=== PATIENT | female | born 1990 | race African-American/Black ===

== ENCOUNTER 2017-04-05 15:07 | Emergency (ER) | payer OTHER ==
[~2017-04-05] VITALS: Ht 172.7 cm; Wt 90.7 kg
[2017-04-05 15:09] VITALS: BP 119/51
[2017-04-05] MEDS ORDERED: MOBIC7.5 MG PO (16:38)
== END 2017-04-05 16:43 | disposition home or self-care (01) ==
LOC: ER 15:07
DX: S51.012A Laceration without foreign body of left elbow, initial encounter (principal); S16.1XXA Strain of muscle, fascia and tendon at neck level, initial encounter; S09.90XA Unspecified injury of head, initial encounter; Y04.2XXA Assault by strike against or bumped into by another person, initial encounter; Y93.01 Activity, walking, marching and hiking; Y92.512 Supermarket, store or market as the place of occurrence of the external cause; Y99.8 Other external cause status

== ENCOUNTER 2017-04-14 15:33 | Emergency (ER) | payer OTHER ==
[~2017-04-14] VITALS: Ht 157.5 cm; Wt 74.8 kg
[~2017-04-14 15:33] MED LIST: MOBIC7.5 MG PO
[2017-04-14] MEDS ORDERED: FLEXERIL PO (16:05)
[2017-04-14] MEDS ORDERED: BACTRIM DS TAB1 EACH PO (16:05)
[2017-04-14] MEDS ORDERED: REGLAN 10 MG TA10 MG PO (16:05)
[2017-04-14] MEDS ORDERED: KEFLEX500 MG PO (16:14)
[2017-04-14 16:32] VITALS: BP 121/47
== END 2017-04-14 16:33 | disposition home or self-care (01) ==
LOC: ER 15:33
DX: L03.114 Cellulitis of left upper limb (principal); S16.1XXA Strain of muscle, fascia and tendon at neck level, initial encounter; F07.81 Postconcussional syndrome; F10.99 Alcohol use, unspecified with unspecified alcohol-induced disorder; S51.012D Laceration without foreign body of left elbow, subsequent encounter; X58.XXXD Exposure to other specified factors, subsequent encounter; K51.90 Ulcerative colitis, unspecified, without complications; Z98.890 Other specified postprocedural states; Z88.5 Allergy status to narcotic agent; Z88.6 Allergy status to analgesic agent

== ENCOUNTER 2017-09-17 08:59 | Emergency (ER) | payer OTHER ==
[~2017-09-17] VITALS: Ht 167.6 cm; Wt 136.1 kg
[~2017-09-17 08:59] MED LIST changes: +BACTRIM DS TAB1 EACH PO; +FLEXERIL PO; +KEFLEX500 MG PO; +PENICILLIN V P500 MG PO; +REGLAN 10 MG TA10 MG PO; +ULTRAM 50MG TAB50 MG PO
[2017-09-17] MEDS ORDERED: PENICILLIN VK500 M1 PO (09:03)
[2017-09-17] MEDS ORDERED: ULTRAM 50MG TAB50 MG PO (09:03)
[2018-02-10] MEDS ORDERED: BACTRIM DS TAB1 EACH PO (15:07)
== END 2017-09-17 09:47 | disposition home or self-care (01) ==
LOC: ER 08:59
DX: K08.89 Other specified disorders of teeth and supporting structures (principal); F10.99 Alcohol use, unspecified with unspecified alcohol-induced disorder; Z88.8 Allergy status to other drugs, medicaments and biological substances; Z88.6 Allergy status to analgesic agent

== ENCOUNTER 2017-11-26 14:00 | Emergency (ER) | payer OTHER ==
[~2017-11-26] VITALS: Ht 157.5 cm; Wt 74.8 kg
[~2017-11-26 14:00] MED LIST changes: +PENICILLIN VK500 M1 PO
[2017-11-26 14:30] VITALS: BP 132/50
[2017-11-26] MEDS ORDERED: TRAMADOL 50 MG50 MG PO (14:56)
[2017-11-26] MEDS ORDERED: NAPROSYN500 MG PO (14:56)
[2017-11-26] MEDS ORDERED: PENICILLIN V P500 MG PO (14:56)
== END 2017-11-26 15:05 | disposition home or self-care (01) ==
LOC: ER 14:00
DX: K08.89 Other specified disorders of teeth and supporting structures (principal); R51 Headache; Z88.5 Allergy status to narcotic agent

== ENCOUNTER 2018-01-08 21:20 | Emergency (ER) | payer OTHER ==
[~2018-01-08] VITALS: Ht 157.5 cm; Wt 77.1 kg
[~2018-01-08 21:20] MED LIST changes: +NAPROSYN500 MG PO; +TRAMADOL 50 MG50 MG PO
[2018-01-08 21:35] VITALS: BP 130/77
[2018-01-08] MEDS ORDERED: PENICILLIN V P500 MG PO (22:09)
[2018-01-08] MEDS ORDERED: HYDROCODONE-AP1 EAC6 PO (22:09)
== END 2018-01-08 22:36 | disposition home or self-care (01) ==
LOC: ER 21:20
DX: K08.89 Other specified disorders of teeth and supporting structures (principal); R51 Headache; L29.9 Pruritus, unspecified; Z88.5 Allergy status to narcotic agent; Z88.6 Allergy status to analgesic agent; Z88.8 Allergy status to other drugs, medicaments and biological substances

== ENCOUNTER 2018-09-23 18:12 | Emergency (ER) | payer OTHER ==
[~2018-09-23] VITALS: Ht 157.5 cm; Wt 86.2 kg
[~2018-09-23 18:12] MED LIST changes: +HYDROCODONE-AP1 EAC6 PO
[2018-09-23 19:01] LABS: ABSOLUTE NEUTROPHILS 6.8 thou/uL (1.4-8.2); EOSINOPHILS 3.8 % (0.0-3.0); HEMATOCRIT 41.8 % (37.0-47.0); HEMOGLOBIN 13.9 gm/dL (12.0-15.0); LYMPHOCYTES 13.6 % (24.0-44.0); MCH 31.1 pg (26.0-34.0); MCHC 33.4 g/dL (28.0-37.0); MCV 93.3 fL (80.0-100.0); PLATELET COUNT 190 thou/uL (150-400); POLYS 73.6 % (36.0-66.0); RBC 4.48 mil/uL (4.20-5.00); RDW 13.4 % (10.5-14.5); WBC 9.2 thou/uL (4.0-11.0)
[2018-09-23 19:05] LABS: CALCIUM 8.9 mg/dL (8.5-10.1); CREATININE 0.7 mg/dL (0.6-1.0); POTASSIUM 3.8 mmol/L (3.5-5.1)
[2018-09-23 19:11] LABS: ALBUMIN 3.6 g/dL (3.4-5.0); TOTAL BILIRUBIN 0.3 mg/dL (<0.1-1.0); TOTAL PROTEIN 7.1 g/dL (6.4-8.2)
[2018-09-23 19:17] LABS: URINE BILIRUBIN NEGATIVE (Negative); URINE BLOOD NEGATIVE (Negative); URINE CLARITY SL CLOUDY; URINE COLOR YELLOW; URINE GLUCOSE-RANDOM* NEGATIVE (Negative); URINE KETONES NEGATIVE (Negative); URINE LEUKOCYTES-REFLEX NEGATIVE (Negative); URINE NITRITE-REFLEX NEGATIVE (Negative); URINE PROTEIN (DIPSTICK) NEGATIVE (Negative); URINE SPECIFIC GRAVITY 1.015 (1.005-1.035); URINE UROBILINOGEN 0.2 E.U./dl (0.2-1.0)
[2018-09-23] MEDS ORDERED: CEPACOL SORE T1 EAC8 PO (19:57)
[2018-09-23] MEDS ORDERED: PROMETH-CODEIN 65 ML PO (19:57)
[2018-09-23 20:29] VITALS: BP 126/60
== END 2018-09-23 20:29 | disposition home or self-care (01) ==
LOC: ER 18:12
PROVIDERS: Physician Assistant
DX: N83.201 Unspecified ovarian cyst, right side (principal); J02.9 Acute pharyngitis, unspecified; R05 Cough; R19.7 Diarrhea, unspecified; Z98.890 Other specified postprocedural states; Z88.6 Allergy status to analgesic agent; Z88.8 Allergy status to other drugs, medicaments and biological substances

== ENCOUNTER → 2018-11-08 | Emergency (ER) | payer OTHER ==
[~2018-11-08] VITALS: Ht 157.5 cm; Wt 86.2 kg
[~2018-11-08] MED LIST changes: +CEPACOL SORE T1 EAC8 PO; +CLEOCIN HCL150 MG PO; +PROMETH-CODEIN 65 ML PO
[2018-11-08 18:05] VITALS: BP 109/47
== END ==
LOC: ER 16:53
DX: K08.89 Other specified disorders of teeth and supporting structures (principal); L02.416 Cutaneous abscess of left lower limb; F17.210 Nicotine dependence, cigarettes, uncomplicated; Z88.5 Allergy status to narcotic agent; Z88.8 Allergy status to other drugs, medicaments and biological substances

== ENCOUNTER 2018-11-16 21:17 | Emergency (ER) | payer OTHER ==
[~2018-11-16] VITALS: Ht 157.5 cm; Wt 86.2 kg
[2018-11-16 21:55] LABS: ABSOLUTE NEUTROPHILS 10.1 thou/uL (1.4-8.2); BASOPHILS 1.1 % (0.0-2.0); EOSINOPHILS 1.6 % (0.0-3.0); HEMATOCRIT 40.6 % (37.0-47.0); HEMOGLOBIN 13.5 gm/dL (12.0-15.0); MCH 31.2 pg (26.0-34.0); MCHC 33.3 g/dL (28.0-37.0); MCV 93.8 fL (80.0-100.0); MONOCYTES 5.3 % (1.0-8.0); PLATELET COUNT 182 thou/uL (150-400); RBC 4.32 mil/uL (4.20-5.00); RDW 13.8 % (10.5-14.5); WBC 13.1 thou/uL (4.0-11.0)
[2018-11-16 22:05] LABS: CALCIUM 8.2 mg/dL (8.5-10.1); CREATININE 0.8 mg/dL (0.6-1.0); POTASSIUM 3.8 mmol/L (3.5-5.1)
[2018-11-16 22:11] LABS: ALBUMIN 2.9 g/dL (3.4-5.0); TOTAL BILIRUBIN 0.3 mg/dL (<0.1-1.0); TOTAL PROTEIN 5.5 g/dL (6.4-8.2)
[2018-11-16 22:11] LABS: URINE BILIRUBIN NEGATIVE (Negative); URINE BLOOD NEGATIVE (Negative); URINE CLARITY CLEAR; URINE COLOR YELLOW; URINE GLUCOSE-RANDOM* NEGATIVE (Negative); URINE KETONES TRACE (Negative); URINE LEUKOCYTES NEGATIVE (Negative); URINE NITRITE NEGATIVE (Negative); URINE PROTEIN (DIPSTICK) NEGATIVE (Negative)
[2018-11-16] MEDS ORDERED: COLACE100 MG PO (23:28)
[2018-11-16] MEDS ORDERED: SENNA8.6 MG PO (23:28)
[2018-11-16] MEDS ORDERED: NORCO 5-325 TA1 EACH PO (23:28)
[2018-11-16 23:37] VITALS: BP 104/43
== END 2018-11-17 00:02 | disposition home or self-care (01) ==
LOC: ER 21:17
PROVIDERS: Student in an Organized Health Care Education/Training Program
DX: S20.211A Contusion of right front wall of thorax, initial encounter (principal); S40.011A Contusion of right shoulder, initial encounter; S50.11XA Contusion of right forearm, initial encounter; I10 Essential (primary) hypertension; F17.210 Nicotine dependence, cigarettes, uncomplicated; Z88.5 Allergy status to narcotic agent; Z88.6 Allergy status to analgesic agent; W50.1XXA Accidental kick by another person, initial encounter; Y93.89 Activity, other specified; Y92.89 Other specified places as the place of occurrence of the external cause; Y99.8 Other external cause status

== ENCOUNTER 2020-05-30 20:52 | Emergency (ER) | payer OTHER ==
[~2020-05-30] VITALS: Ht 157.5 cm; Wt 81.7 kg
[~2020-05-30 20:52] MED LIST changes: +COLACE100 MG PO; +NORCO 5-325 TA1 EACH PO; +SENNA8.6 MG PO
[2020-05-30 22:00] VITALS: BP 118/82
--- NOTE | 2020-06-01 14:37 | EKG ---
[facility] [place] [address] ELECTROCARDIOGRAM REPORT Name: JAMES KRUEGER Room #: [facility]P [facility]#: [id number] Admission: 05/30/20 Attend Phys: Discharge: 05/30/20 Date of : [birth year] Report #: [id number] THIS REPORT FOR: cc: [facility] - Clinic physician unknown [facility] - Clinic physician unknown Kenny Tiwari MD [facility] ~ THIS REPORT FOR: //name// [facility] ED Test Date: 2020-05-30 Test Time: 21:07:11 Pat Name: JAMES KRUEGER Department: Room: Gender: F Thermometer Tester: : 1990 Requested By: Lydia Connell Order Number: [id number] : Kenny Tiwari Measurements Intervals [place] Rate: 85 P: 67 GA: 129 QRS: 73 QRSD: 94 T: 53 QT: 382 QTc: 455 Interpretive Statements Sinus rhythm No previous ECG available for comparison Electronically Signed On 06-01-2020 14:37:17 FREIGHT RATE ANALYST by Kenny Tiwari [email or web address] <ELECTRONICALLY SIGNED> By: Kenny Tiwari MD, FACC 06/01/20 1437 2107 06 Kenny Tiwari MD, FACC /EPI
== END 2020-05-30 22:27 | disposition home or self-care (01) ==
LOC: ER 20:52
DX: J06.9 Acute upper respiratory infection, unspecified (principal); N64.59 Other signs and symptoms in breast; R19.7 Diarrhea, unspecified; I10 Essential (primary) hypertension; F17.210 Nicotine dependence, cigarettes, uncomplicated; Z20.828 Contact with and (suspected) exposure to other viral communicable diseases; Z98.890 Other specified postprocedural states; Z79.899 Other long term (current) drug therapy; Z88.5 Allergy status to narcotic agent; Z88.8 Allergy status to other drugs, medicaments and biological substances

== ENCOUNTER 2020-10-16 20:08 | Inpatient (IN) | payer OTHER ==
[~2020-10-16] VITALS: Ht 157.5 cm; Wt 117.9 kg
--- NOTE | ~2020-10-16 | O ---
[facility] [place] [address] OPERATIVE REPORT Name: JAMES KRUEGER Room #: 457-P ADM IN M.R.#: [id number] Admission: 10/16/20 Attend Phys: Chi Fererr MD Discharge: Date of : 89 Report #: [id number] THIS REPORT FOR: cc: [facility] - Clinic physician unknown [facility] - Clinic physician unknown Thierry Arthur MD ~ DATE OF SERVICE: 10/17/2020 PREOPERATIVE DIAGNOSIS: Right breast abscess. POSTOPERATIVE DIAGNOSIS: Right breast abscess. OPERATION: Incision and drainage of right breast abscess. SURGEON: Thierry Arthur MD ANESTHESIA: General. ESTIMATED BLOOD LOSS: Minimal. SPECIMEN: Right breast abscess fluid for culture and sensitivity. DESCRIPTION OF PROCEDURE: After informed consent was obtained, the patient was brought to the operating room and placed supine. SCDs were placed and working, preoperative antibiotics were administered, general anesthesia was induced. The right breast was prepped and draped in the usual sterile fashion. A 3 cm incision was made in the left upper quadrant of the breast, right at the line of the areola. Cautery dissection was made down through the subcutaneous tissue. A large pus-filled cavity was then encountered. The pus was suctioned out. Loculations were broken up bluntly. The area was then packed with sterile gauze after it was copiously irrigated with normal saline. Sterile dressings were applied. COMPLICATIONS: None. DISPOSITION: The patient was taken to recovery in satisfactory condition. By: [id number] Thierry Arthur MD /nt
[2020-10-16 20:11] VITALS: BP 142/71
[2020-10-16 20:50] LABS: HEMATOCRIT 39.7 % (37.0-47.0); HEMOGLOBIN 13.3 gm/dL (12.0-15.0)
[2020-10-16 20:51] LABS: ABSOLUTE NEUTROPHILS 14.9 thou/uL (1.4-8.2); BASOPHILS 0.5 % (0.0-2.0); EOSINOPHILS 1.8 % (0.0-3.0); LYMPHOCYTES 12.1 % (24.0-44.0); MCH 31.7 pg (26.0-34.0); MCHC 33.5 g/dL (28.0-37.0); MCV 94.6 fL (80.0-100.0); MONOCYTES 5.9 % (1.0-8.0); PLATELET COUNT 256 thou/uL (150-400); POLYS 79.7 % (36.0-66.0); RDW 13.6 % (10.5-14.5); WBC 18.7 thou/uL (4.0-11.0)
[2020-10-16 21:00] LABS: CALCIUM 8.9 mg/dL (8.5-10.1); CREATININE 0.9 mg/dL (0.6-1.0); POTASSIUM 3.6 mmol/L (3.5-5.1)
[2020-10-16 21:06] LABS: ALBUMIN 3.4 g/dL (3.4-5.0); TOTAL BILIRUBIN 0.7 mg/dL (0.2-1.0); TOTAL PROTEIN 7.1 g/dL (6.4-8.2)
[2020-10-16 22:53] VITALS: BP 108/53
[2020-10-16 22:59] VITALS: BP 120/67
[2020-10-16 23:49] VITALS: BP 118/68
[2020-10-17] VITALS (7 sets, daily range): BP systolic 112–147; BP diastolic 48–78
--- NOTE | 2020-10-17 03:42 | NUR ---
RECEIVED CARE OF THIS PATIENT AT 2325 VIA W/C FROM ED ACCOMPANIED BY ED PERSONEL. PATIENT ALERT AND ORIENTED X4. UP IN ROOM BY SELF. R BREAST RED, WARM, TENDER TO TOUCH AND EDEMATOUS. C/O PAIN. MED GIVEN. IV PATENT IN RAC WITH FLUIDS INFUSING. SLEPT LITTLE THIS SHIFT.
--- NOTE | 2020-10-17 09:22 | NUR ---
INITIAL ASSESSMENT: PT LIVES HOME WITH HER CHILDREN. PT STATED SHE IS ACTIVE AND INDEPENDENT W/CARES. PT HAS 0 DMES. PT HAS NO HX WITH SNF OR HH. THERE ARE NO ANTICIPATED NEEDS.
--- NOTE | 2020-10-17 09:37 | NUR ---
ASSUMED PT CARE THIS AM. PT VSS, A&OX4. PATIENT TEARFUL AND REPORTING PAIN OF 8/10 IN RIGHT BREAST UPON RECEIVING PATIENT. PHYSICIAN NOTIFIED OF THIS AND PAIN MEDICATION ORDERED AND GIVEN. RIGHT BREAST WITH REDNESS AND WARM. K PAD IN USE. IV PATENT, FLUIDS INFUSING. PATIENT REMAINS CONTINENT AND CALLS WHEN NEEDED. REPORTING NO NUMBNESS OR TINGLING.
--- NOTE | 2020-10-17 14:40 | NUR ---
PT ARRIVED TO UNIT TO ROOM 457. PT TRANSFERED FROM , PT DUE TO HAVE I AND D TO RT BREAST. NO DRAINAGE SINCE AUG 16 2020. STARTED A SMALL KNOT SINCE 14 YR. FATTY TISSUE. SON HIT BALL TO CHEST AND IT STARTED TO GET BIGGER. PT STATED PAIN FEEL LIKE A CONSTANT BURNING, AND THROBBING PAIN OF 9 ON 1-10 SCALE.
--- NOTE | 2020-10-17 15:07 | NUR ---
PT VERY UPSET AND STATED SHE WANTED TO LEAVE BECAUSE SHE DIDN'T HAVE ANYONE TELLING HER WHAT WAS GOING ON AND THAT STAFF ON THE OTHER SIDE WAS RUDE. PT CALMED DOWN WHEN TALKING TO PT AND TELLING HER THAT THE SURGERY WOULD BE AROUND 5PM. PT STATED NO ONE TOLD HER AND SHE DIDN'T SEE A DR. OFFERED FOR HER TO TALK TO NURSE ADVOCATE AND SHE DECLINED AT THIS TIME. PT STATED SHE WAS JUST FRUSTRATED BECAUSE SHE HAS BEEN SICK FOR SOME TIME AND WAS HURTING AND DIDN'T GET PAIN MED FOR HER PAIN FOR AWHILE.
--- NOTE | 2020-10-17 16:01 | NUR ---
CALLED IR AND SURGERY TO SEE IF SHE WAS ON THE LIST TO GO DOWN FOR SURGERY TONIGHT. IR SAID SHE WAS NOT ON THE LIST, OR STATED THEY WAS EXPECTING ONE MORE SURGERY TONIGHT, DIDN'T SEE HER ON THE LIST AT THIS TIME BUT KNEW THERE WAS ANOTHER SURGERY TONIGHT.
--- NOTE | 2020-10-17 16:42 | NUR ---
PRE-SURGERY SEEN HER AND ASKING PAST MEDICAL ISSUES AND ALLERGIES.
--- NOTE | 2020-10-17 17:30 | NUR ---
PT LEAVING AT THIS TIME FOR SURGERY VIA BED.
--- NOTE | 2020-10-18 01:39 | NUR ---
ASSUMED CARE OF PT AT SHIFT CHANGE. PT IS AOX4 AND UP AD ANNY. PT IS POST OP DAY 0. SURGICAL DRESSING ON RIGHT BREAST IS C/D/I. ABX TREATMENT CONTINUED. PT REPORTED SOME PAIN AND NAUSEA; PRNS PROVIDED. ASSESSMENT CHARTED. PT DENIED SOA AND IS TOLERATING PO. PT WOULD LIKE TO GO HOME IN THE MORNING. VSS AND NO S/S OF ACUTE DISTRESS. WILL CONTINUE TO MONITOR.
[2020-10-18 05:41] VITALS: BP 117/43
[2020-10-18 07:12] VITALS: BP 97/64
--- NOTE | 2020-10-18 10:18 | NUR ---
Received awake on bed. Due medications given as prescribed. On room air. Vital signs stable. On MS, not on telemetry; no complains and signs of chest pain, crushing sensation and heaviness. Assisted in ADLs. On regular diet- tolerating well; no nausea, no vomiting and no abdominal pain noted. Continent of bowel and bladder. With NS at 100cc/hr, infusing well at R hand. No complains of pain made during assessment. S/P I&D R breast 4/5- dressing in place; to be changed today. Up ad pia, independent with ADLs. Possible discharge today- a/w physician's rounds- pt updated. Pt seen and examined by Dr Arthur- parul for d/c from his standpoint; a/w Dr Campbell's discharge orders; pt to be taught re: packing. To continue monitoring patient.
[2020-10-18] MEDS ORDERED: BACTRIM DS TAB1 EAC1 PO (11:36)
[2020-10-18 12:25] VITALS: BP 97/64
--- NOTE | 2020-10-18 12:31 | NUR ---
PT UNDERWENT I&D OF R BREAST YESTERDAY. CARE TEAM INDICATED PT IS MEDICALLY STABLE TO DC HOME THIS DAY ON ORAL ABX. PT TO DC HOME TO SELF CARE. NO OTHER CM INTERVENTION INDICATED. CASE CLOSED.
== END 2020-10-18 14:00 | disposition home or self-care (01) | DRG 585 ==
LOC: ER 20:08 → 4W 21:27 → EROBS 21:27 → 4S 21:27 → 4W 10-17 14:01
PROVIDERS: Nurse Practitioner Family; Surgery; ADMIT Hospitalist; ATTEND Hospitalist
PROC: 0H9T0ZZ Drainage of Right Breast, Open Approach (ICD-10-PCS; principal; 2020-10-17)
DX: N61.1 Abscess of the breast and nipple (principal); I10 Essential (primary) hypertension; F17.210 Nicotine dependence, cigarettes, uncomplicated; D72.829 Elevated white blood cell count, unspecified; Z72.4 Inappropriate diet and eating habits; Z88.6 Allergy status to analgesic agent; Z20.822 Contact with and (suspected) exposure to COVID-19
CPT/HCPCS: 10047; 10102; 50010; 50101; 50386; 50403; 70005

== ENCOUNTER 2020-12-19 02:04 | Emergency (ER) | payer OTHER ==
[~2020-12-19 02:04] MED LIST changes: +BACTRIM DS TAB1 EAC1 PO
== END 2020-12-19 03:29 | disposition left against medical advice (07) ==
LOC: ER 02:04
DX: Z53.21 Procedure and treatment not carried out due to patient leaving prior to being seen by health care provider (principal)